=== PATIENT | male | born 1990 | race African-American/Black ===

== ENCOUNTER 2020-02-18 14:30 | Emergency (ER) | payer SELFPAY ==
[~2020-02-18] VITALS: Ht 175.3 cm; Wt 80.0 kg
[2020-02-18 14:43] VITALS: BP 128/55
== END 2020-02-18 15:15 | disposition left against medical advice (07) ==
LOC: ER 14:36
DX: F91.1 Conduct disorder, childhood-onset type (principal)
CPT/HCPCS: 99285